=== PATIENT | male | born 1990 | race Caucasian/White ===

== ENCOUNTER 2020-04-11 08:14 | Emergency (ER) | payer OTHER ==
[~2020-04-11] VITALS: Ht 180.3 cm; Wt 109.0 kg
[2020-04-11 08:19] VITALS: BP 134/83
== END 2020-04-11 09:05 | disposition home or self-care (01) ==
LOC: ER 08:15
DX: M79.601 Pain in right arm (principal); X58.XXXA Exposure to other specified factors, initial encounter; Y93.89 Activity, other specified; Y92.89 Other specified places as the place of occurrence of the external cause; Y99.8 Other external cause status
CPT/HCPCS: 29125; 73090; 99283